=== PATIENT | female | born 1985 | race Caucasian/White ===

== ENCOUNTER 2018-09-21 12:37 | Emergency (ER) | payer MEDICAID ==
[~2018-09-21] VITALS: Ht 175.3 cm; Wt 88.0 kg
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
[2018-09-21 13:10] LABS: BASOPHILS # (AUTO) 0.05 x10^3/uL (0-0.1); BASOPHILS % (AUTO) 0 % (0-1); EOSINOPHILS # (AUTO) 0.29 x10^3/uL (0-0.4); EOSINOPHILS % (AUTO) 2 % (1-7); LYMPHOCYTES # (AUTO) 2.76 x10^3/uL (1-3.4); LYMPHOCYTES % (AUTO) 18 % (22-44); MD NO; MEAN CORPUSCULAR HEMOGLOBIN 26.8 pg (27.0-34.8); MEAN CORPUSCULAR HGB CONC 33.5 g/dL (32.4-35.8); MEAN CORPUSCULAR VOLUME 79.9 fL (80-100); MEAN PLATELET VOLUME 9.5 fL (7.4-10.4); MONOCYTES # (AUTO) 0.89 x10^3/uL (0.2-0.8); MONOCYTES % (AUTO) 6 % (2-9); NEUTROPHILS # (AUTO) 11.37 x10^3/uL (1.8-6.8); NEUTROPHILS % (AUTO) 74 % (42-75); PLATELET COUNT 392 x10^3/uL (130-400); RED BLOOD COUNT 4.62 x10^6/uL (3.82-5.3); RED CELL DISTRIBUTION WIDTH 15.4 % (9.6-15.2)
[2018-09-21 13:13] LABS: CULTURE INDICATED? NO; MICROSCOPIC AUTO
[2018-09-21 13:19] LABS: ALANINE AMINOTRANSFERASE 28 U/L (12-78); ALBUMIN 3.8 g/dL (3.4-5.0); ANION GAP 7 mmol/L (5-15); CALCIUM 8.6 mg/dL (8.5-10.1); CHLORIDE 112 mmol/L (98-107); CREATININE 0.92 mg/dL (0.55-1.02)
[2018-09-21 13:21] LABS: SALICYLATE LEVEL < 1.7 mg/dL (2.8-20.0)
[2018-09-21 13:22] LABS: AMPHETAMINE SCREEN, URINE Positive (Negative); BARBITURATE SCREEN, URINE Negative (Negative); BENZODIAZEPINE SCREEN, URINE Negative (Negative); CANNABINOID SCREEN, URINE Negative (Negative); COCAINE SCREEN, URINE Negative (Negative); METHADONE SCREEN, URINE Negative (Negative); OPIATE SCREEN, URINE Negative (Negative)
[2018-09-21 13:24] LABS: ALKALINE PHOSPHATASE 83 U/L (45-117); BILIRUBIN,TOTAL 0.1 mg/dL (0.2-1.0); TOTAL PROTEIN 7.3 g/dL (6.4-8.2)
[2018-09-21 13:28] LABS: ACETAMINOPHEN < 2 mcg/mL (10-30)
[2018-09-21 14:33] VITALS: BP 140/88
--- NOTE | 2018-09-21 14:53 | NUR ---
[facility] ETA 1600, TIMUR WILL DO ASSESSMENT
--- NOTE | 2018-09-21 16:21 | NUR ---
report from azra bragg. pt just completed well care evaluation. this rn introduced self to pt. pt very angry after evaluation. rn stated dinner tray would be ordered and pt replied, "i'll believe it when i see it. that's what they said earlier and it never showed up." diet tray ordered. pt lying on gurney with head covered by blankets and lights dimmed in secured room. no needs expressed. sitter at doorway for continuous monitoring.
--- NOTE | 2018-09-21 16:30 | NUR ---
SEEN BY [facility]. PACKET FAXED TO [facility], [facility] AND [facility]
--- NOTE | 2018-09-21 17:03 | NUR ---
diet tray provided to pt. pt resting on gurney with lights dimmed in secured room. no needs expressed. sitter at doorway for continuous monitoring.
[2018-09-21] MEDS ORDERED: MIRT30TA PO (17:22)
[2018-09-21] MEDS ORDERED: TOPI50TA35 PO (17:22)
[2018-09-21] MEDS ORDERED: HYDR50CA PO (17:22)
--- NOTE | 2018-09-21 17:29 | NUR ---
suicide reassessment and med rec completed. pt lying on gurney with head covered by blankets and lights dimmed in secured room. no needs expressed. sitter at doorway for continuous monitoring.
--- NOTE | 2018-09-21 17:36 | NUR ---
report to azra banda at [facility]. accepting: md maite
--- NOTE | 2018-09-21 18:52 | NUR ---
pt lying on gurney with lights dimmed in secured room. no needs expressed. sitter at doorway for continuous monitoring.
== END 2018-09-21 21:13 ==
LOC: ED 14:13
DX: F33.9 Major depressive disorder, recurrent, unspecified (principal); F15.10 Other stimulant abuse, uncomplicated; Z72.9 Problem related to lifestyle, unspecified
CPT/HCPCS: 36415; 80053; 80307; 80329; 81001; 84703; 85025; 99285; G0480

== ENCOUNTER 2019-12-09 13:15 | Emergency (ER) | payer MEDICAID ==
[~2019-12-09] VITALS: Ht 172.7 cm; Wt 108.0 kg
[~2019-12-09 13:15] MED LIST: HYDR50CA PO; MIRT30TA PO; TOPI50TA35 PO
--- NOTE | 2019-12-09 13:30 | NUR ---
NA X 1
[2019-12-09 13:51] VITALS: BP 120/93
[2019-12-09] MEDS ORDERED: AMPICILLIN/SULBACTAM 3 GM in SODIUM CHLORIDE 0.9% 100 ML IV ONE (14:30)
[2019-12-09] MEDS ORDERED: SODIUM CHLORIDE FLUSH 10ML SYR IVF ONE (14:30)
[2019-12-09] MEDS ORDERED: DIPH,PERTUSS(ACELL),TET VAC/PF 0.5 ML IM-VACC ONE ×2 (14:30→15:56)
[2019-12-09] MEDS ORDERED: MUPIROCIN OINT 2%, 1 GM APPL. TP ONE (14:30)
[2019-12-09 14:36] LABS: MEAN CORPUSCULAR HEMOGLOBIN 24.3 pg (27.0-34.8); MEAN CORPUSCULAR HGB CONC 31.6 g/dL (32.4-35.8); MEAN PLATELET VOLUME 8.9 fL (7.4-10.4); PLATELET COUNT 305 x10^3/uL (130-400); RED BLOOD COUNT 4.29 x10^6/uL (3.82-5.3); RED CELL DISTRIBUTION WIDTH 19.2 % (9.6-15.2)
[2019-12-09 14:50] LABS: ALBUMIN 3.4 g/dL (3.4-5.0); ANION GAP 9 mmol/L (5-15); CALCIUM 9.1 mg/dL (8.5-10.1); CHLORIDE 108 mmol/L (98-107); CREATININE 0.63 mg/dL (0.55-1.02)
[2019-12-09] MEDS ORDERED: MUPIROCIN OINT 2%, 22GM TP ONE (15:00)
[2019-12-09] MEDS ORDERED: NEOSPORIN OINT. PKT 1 PACKET ONE (15:01)
[2019-12-09 15:03] LABS: BASOPHILS # (AUTO) 0.08 x10^3/uL (0-0.1); BASOPHILS % (AUTO) 0 % (0-1); EOSINOPHILS # (AUTO) 0.14 x10^3/uL (0-0.4); EOSINOPHILS % (AUTO) 1 % (1-7); LYMPHOCYTES # (AUTO) 1.99 x10^3/uL (1-3.4); LYMPHOCYTES % (AUTO) 11 % (22-44); MD SCAN; MONOCYTES # (AUTO) 0.56 x10^3/uL (0.2-0.8); MONOCYTES % (AUTO) 3 % (2-9); NEUTROPHILS # (AUTO) 16.01 x10^3/uL (1.8-6.8); NEUTROPHILS % (AUTO) 85 % (42-75)
[2019-12-09] MEDS ORDERED: CEFTRIAXONE 1,000 MG ONE (15:56)
[2019-12-09] MEDS ORDERED: CEFTRIAXONE 1,000 MG IM ONE (16:00)
== END 2019-12-09 16:47 | disposition home or self-care (01) ==
LOC: ED 16:10
DX: O26.891 Other specified pregnancy related conditions, first trimester (principal); L03.312 Cellulitis of back [any part except buttock and flank]; L03.114 Cellulitis of left upper limb; Z3A.11 11 weeks gestation of pregnancy
CPT/HCPCS: 36415; 76815; 80048; 82040; 84702; 85025; 90471; 90715; 96372; 99284; J0696